=== PATIENT | male | born 1945 | race Caucasian/White ===

== ENCOUNTER 2020-12-25 11:08 | Emergency (ER) | payer MEDICARE ==
[~2020-12-25] VITALS: Ht 175.3 cm; Wt 85.8 kg
[2020-12-25] MEDS ORDERED: ATORVASTATIN CA20 MG PO (11:24)
[2020-12-25] MEDS ORDERED: METFORMIN HCL1000 MG (11:24)
[2020-12-25] MEDS ORDERED: FLOMAX0.4 MG PO (11:24)
[2020-12-25] MEDS ORDERED: PANTOPRAZOLE SO40 MG PO (11:24)
[2020-12-25] MEDS ORDERED: AMLODIPINE BESY10 MG PO (11:24)
[2020-12-25] MEDS ORDERED: GLIMEPIRIDE2 MG PO (11:24)
[2020-12-25] MEDS ORDERED: INDOMETHACIN50 MG PO (12:38)
[2020-12-25] MEDS ORDERED: MEDROL4 MG PO (12:41)
[2020-12-25] MEDS ORDERED: TYLENOL # 31 EA PO (12:43)
[2020-12-25 13:00] VITALS: BP 140/79
== END 2020-12-25 12:59 | disposition home or self-care (01) ==
LOC: FSED 11:45
DX: M76.61 Achilles tendinitis, right leg (principal); M79.671 Pain in right foot; E11.9 Type 2 diabetes mellitus without complications; I10 Essential (primary) hypertension; E78.5 Hyperlipidemia, unspecified; K21.9 Gastro-esophageal reflux disease without esophagitis
CPT/HCPCS: 99283